=== PATIENT | male | born 1965 | race Caucasian/White ===

== ENCOUNTER 2021-09-29 22:18 | Emergency (ER) | payer OTHER ==
[~2021-09-29] VITALS: Ht 182.8 cm; Wt 136.1 kg
[2021-09-29 22:43] LABS: BASO # 0.1 10*3/uL (0.0-0.1); BASO % 0.5 % (0.0-1.0); EOS # 0.2 10*3/uL (0.0-0.4); EOS % 1.5 % (1.0-4.0); HEMATOCRIT 41.3 % (42.0-52.0); LYMPH # 2.6 10*3/uL (1.3-4.4); LYMPH % 21.2 % (27.0-41.0); MEAN CORPUSCULAR HGB 28.3 pg (27.0-31.0); MEAN CORPUSCULAR HGB CONC 32.9 g/dl (33.0-37.0); MEAN PLATELET VOLUME 9.1 fl (9.6-12.3); MONO # 1.2 10*3/uL (0.1-1.0); MONO % 9.6 % (3.0-9.0); NEUT # 8.1 10*3/uL (2.3-7.9); NEUT % 65.8 % (47.0-73.0); PLATELET COUNT AUTOMATED 321 10*3/uL (130-400); WHITE BLOOD COUNT 12.3 10*3/uL (4.8-10.8)
[2021-09-29] MEDS ORDERED: HYDR25T PO (22:47)
[2021-09-29] MEDS ORDERED: PROTONIX40 MG PO (22:49)
[2021-09-29] MEDS ORDERED: TOPROL XL25 MG PO (22:50)
[2021-09-29] MEDS ORDERED: METOPROLOL SUCC25 M2 PO (22:51)
[2021-09-29 23:06] LABS: ALBUMIN 3.2 gm/dl (3.1-4.5); ALKALINE PHOSPHATASE 66 U/L (45-117); BUN 19 mg/dl (7-24); CHLORIDE 101 mmol/L (98-107); CREATININE 0.96 mg/dL (0.70-1.30); SGOT/AST 35 IU/L (3-35); SGPT/ALT 85 U/L (12-78); SODIUM 138 mmol/L (136-145); TOTAL PROTEIN 7.4 gm/dL (6.4-8.2)
== END 2021-09-30 00:15 | disposition home or self-care (01) ==
LOC: ED 22:18
PROVIDERS: Internal Medicine
DX: R73.9 Hyperglycemia, unspecified (principal); D72.829 Elevated white blood cell count, unspecified; I10 Essential (primary) hypertension; Z79.899 Other long term (current) drug therapy